=== PATIENT | female | born 1935 | race Caucasian/White ===

== ENCOUNTER 2017-11-06 14:19 | Inpatient (IN) | payer OTHER, BC ==
[~2017-11-06] VITALS: Ht 167.6 cm; Wt 80.7 kg
--- NOTE | ~2017-11-06 | EKG ---
[place] [address] [facility] [employer] [address] ELECTROCARDIOGRAM REPORT Name: HAYDEN ORTIZ Room #: 206-P ADM IN M.R.#: [id number] Admission: 11/06/17 Attend Phys: Nathan Zurita MD Discharge: Date of : 31 Report #: [id number] THIS REPORT FOR: //name// [facility] ED Test Date: 2017-11-06 Test Time: 14:27:42 Pat Name: HAYDEN DELGADO Department: Room: Gender: F Time Checker: avril : 1935 Requested By: April Inman Order Number: [id number] MD: Pako Souza Measurements Intervals [place]lett Rate: 82 P: 15 NM: 194 QRS: -37 QRSD: 164 T: 145 QT: 415 QTc: 485 Interpretive Statements Sinus rhythm Ventricular premature complex Left bundle branch block No previous ECG available for comparison Electronically Signed On 11-07-2017 10:46:41 CDT by Pako Souza [email or web address] <ELECTRONICALLY SIGNED> By: Pako Souza MD 11/07/17 1046 1427 1427 Pako Souza MD /MAYNOR
--- NOTE | ~2017-11-06 | HC ---
[facility] [place] [address] CONSULTATION Name: HAYDEN ORTIZ Room #: 206-P ADM IN M.R.#: [id number] Admission: 11/06/17 Attend Phys: Nathan Zurita MD Discharge: Date of : 31 Report #: [id number] THIS REPORT FOR: //name// CC: Nathan Lopez REFERRING PHYSICIAN: Dr. Zurita. PRIMARY CARE PHYSICIAN: Dr. Albrecht. REASON FOR REFERRAL: Abnormal chest x-ray. HISTORY OF PRESENT ILLNESS: The patient is an 82-year-old white female who presents to our Emergency Room with left-sided chest pain. Chest x-ray shows left upper lobe density. A pulmonary consultation was requested. The patient was in her usual state of health until about 2 days prior to presentation, she noticed mild left-sided chest wall discomfort. It was said to be short duration. It is sharp. It did not radiate. With recurrent chest pains, she presented to the Emergency Room. Chest x-ray performed in the ER shows density in the left hilum. The left hemidiaphragm is mildly elevated with a possible small left-sided pleural effusion. The patient has smoked very briefly as a young adult. She has smoked less than a year. She was exposed to secondhand smoke from her for many years. She denies any history of chronic lung disease. Denies any recent night sweats, fever or chills, chest pain, productive cough. Denies any recent weight loss. She had a complete physical about 5 years ago. She is followed regularly by Dr. Flores, her photo print specialist, for her Crohn's disease. PAST MEDICAL HISTORY: Notable for Crohn's disease for many years, secondhand smoke exposure. PAST SURGICAL HISTORY: None. ALLERGIES: PENICILLIN, which causes RASH. HOME MEDICATIONS: Paxil, Humira, Prilosec, iron supplements. FAMILY HISTORY: Unremarkable. SOCIAL HISTORY: She has tobacco use as mentioned above. She denies any alcohol [facility] [address] [place] [address] CONSULTATION Name: HAYDEN ORTIZ Room #: [address] [place] [address] [place] [facility].#: [id number] Admission: 11/06/17 Attend Phys: Nathan Zurita MD Discharge: Date of : 31 Report #: [id number]. She lives independently by herself. REVIEW OF SYSTEMS: As mentioned above, otherwise 10-point system review negative. PHYSICAL EXAMINATION: GENERAL: She is awake, alert, in no apparent distress. VITAL SIGNS: Temperature is 97.8 degrees Fahrenheit, pulse is 67, respiratory rate is 18, blood pressure 130/64 mmHg, saturation 98%. HEENT: Normocephalic, atraumatic. NECK: Supple, without any lymphadenopathy or thyromegaly. CHEST: Breath sounds are good bilaterally without any rales or wheezes. CARDIOVASCULAR: Normal S1, S2. There are no murmurs or gallop. There is no JVD, no carotid bruit. Pulses are 2+/4+ bilaterally. ABDOMEN: Soft, nontender, no organomegaly or masses felt. GENITOURINARY: Deferred. RECTAL: Deferred. EXTREMITIES: No edema, cyanosis or clubbing. LABORATORY DATA: Chest x-ray as mentioned above. Electrolytes are normal except for creatinine 1.5. Liver enzymes are grossly unremarkable. WBC 8900, hemoglobin 11.0, platelets are mildly elevated. No evidence of bandemia. IMPRESSION: 1. Left-sided chest pain in this 82-year-old white female. Chest x-ray shows density involving the left hilar area. There is some evidence of partial left diaphragmatic weakness along with small pleural effusion. Lung mass is suspected. Bronchogenic carcinoma is to consider. Pneumonia is felt to be less likely, though cannot absolutely rule out. 2. Significant secondhand smoke exposure. 3. Crohn's disease. 4. Renal insufficiency, by history appears to be acute kidney injury, etiology is unclear. RECOMMENDATIONS: We will proceed with noncontrast CT chest given renal insufficiency. Further recommendation pending review of this chest CT. Agree with broad-spectrum antibiotics. Treating for presumed community-acquired pneumonia. Pain control for chest pain. Findings were discussed with the patient and her sons. All questions were answered. [address] [address] CONSULTATION Name: HAYDEN ORTIZ Room #: 206-P ADM IN M.R.#: [id number] Admission: 11/06/17 Attend Phys: Nathan Zurita MD Discharge: Date of : 31 Report #: [id number] Thank you for this consultation. <ELECTRONICALLY SIGNED> By: Billy Lopez MD 11/07/17 1457 1315 1402 Billy Lopez MD /nt
[2017-11-06 14:29] VITALS: BP 107/66
[2017-11-06] MEDS ORDERED: PAXIL10 MG PO (15:14)
[2017-11-06] MEDS ORDERED: HUMIRA10 MG/0.1 SUBQ (15:14)
[2017-11-06] MEDS ORDERED: IRON325 PO (15:15)
[2017-11-06] MEDS ORDERED: PRILOSEC 10MG C10 MG PO (15:15)
[2017-11-06 15:18] LABS: ABSOLUTE NEUTROPHILS 5.8 thou/uL (1.4-8.2); BASOPHILS 0.6 % (0.0-2.0); EOSINOPHILS 1.3 % (0.0-3.0); HEMATOCRIT 32.1 % (37.0-47.0); HEMOGLOBIN 10.7 gm/dL (12.0-15.0); LYMPHOCYTES 25.2 % (24.0-44.0); MCH 30.1 pg (26.0-34.0); MCHC 33.3 g/dL (28.0-37.0); MCV 90.4 fL (80.0-100.0); MONOCYTES 6.9 % (1.0-8.0); PLATELET COUNT 382 thou/uL (150-400); RBC 3.55 mil/uL (4.20-5.00); RDW 14.2 % (10.5-14.5); WBC 8.8 thou/uL (4.0-11.0)
[2017-11-06 15:30] LABS: ANION GAP 7 mmol/L (7-16); BUN 19 mg/dL (7-18); CALCIUM 8.8 mg/dL (8.5-10.1); CHLORIDE 103 mmol/L (98-107); CO2 24 mmol/L (21-32); CREATININE 1.3 mg/dL (0.6-1.0); GLUCOSE 130 mg/dL (74-106); SODIUM 134 mmol/L (136-145)
[2017-11-06 15:39] LABS: ALBUMIN 2.6 g/dL (3.4-5.0); LIPASE 72 U/L (73-393); SGOT 14 U/L (15-37); SGPT 16 U/L (30-65); TOTAL BILIRUBIN 0.2 mg/dL (<0.1-1.0); TOTAL PROTEIN 7.5 g/dL (6.4-8.2); TROPONIN-I <0.06 ng/mL (<0.06)
[2017-11-06 17:01] VITALS: BP 108/59
[2017-11-06 17:23] VITALS: BP 108/59
[2017-11-06 17:42] VITALS: BP 108/74
[2017-11-06 20:45] VITALS: BP 119/56
[2017-11-07 00:22] VITALS: BP 123/52
[2017-11-07 04:31] LABS: HEMATOCRIT 34.1 % (37.0-47.0); MCH 29.7 pg (26.0-34.0); MCHC 32.3 g/dL (28.0-37.0); MCV 91.8 fL (80.0-100.0); RBC 3.71 mil/uL (4.20-5.00); RDW 14.1 % (10.5-14.5); WBC 7.5 thou/uL (4.0-11.0)
[2017-11-07 04:32] VITALS: BP 129/63
[2017-11-07 04:40] LABS: CALCIUM 8.9 mg/dL (8.5-10.1); CREATININE 1.5 mg/dL (0.6-1.0)
[2017-11-07 08:03] VITALS: BP 145/63
[2017-11-07 11:56] VITALS: BP 131/64
[2017-11-07 16:02] LABS: BE(vivo) -1.4 mmol/L (-2 to +3); HCO3 22.2 mmol/L (22.0-26.0); PCO2 33.7 mmHg (35.0-45.0); PO2 77.2 mmHg (80.0-100.0); pH 7.437 (7.360-7.450); sO2 95.9 % (92.0-98.0)
[2017-11-07 17:27] VITALS: BP 162/71
[2017-11-07 20:40] VITALS: BP 131/75
[2017-11-08 04:50] VITALS: BP 103/51; BP 140/81
[2017-11-08 06:24] LABS: CALCIUM 8.4 mg/dL (8.5-10.1); CREATININE 1.3 mg/dL (0.6-1.0); POTASSIUM 4.4 mmol/L (3.5-5.1)
[2017-11-08 07:00] VITALS: BP 156/64
[2017-11-08 11:46] VITALS: BP 122/67
[2017-11-08 15:16] VITALS: BP 125/60
[2017-11-08 19:50] VITALS: BP 138/66
[2017-11-09 04:48] VITALS: BP 135/63
[2017-11-09 07:14] VITALS: BP 143/75
[2017-11-09 11:55] VITALS: BP 135/72
[2017-11-09 15:09] LABS: APTT 33.3 Seconds (24.5-32.8); PROTIME 10.7 Seconds (9.3-11.4)
[2017-11-09 15:43] VITALS: BP 167/80
[2017-11-09] MEDS ORDERED: ENOXAPARIN40 MG/0.1 SUBQ (16:29)
[2017-11-09] MEDS ORDERED: ONDANSETRON HCL4 M1 IV PUSH (16:29)
[2017-11-09] MEDS ORDERED: LIDOPATCH1 EACH TRANSDERM (16:29)
[2017-11-09] MEDS ORDERED: LOPERAMIDE 2 MG2 M1 PO (16:29)
[2017-11-09] MEDS ORDERED: MUCINEX600 MG PO (16:29)
[2017-11-09] MEDS ORDERED: AZITHROMYCIN500 M3 IV (16:29)
[2017-11-09] MEDS ORDERED: ROCEPHIN 11 GM/1001 IV (16:29)
== END 2017-11-09 18:11 | disposition short-term general hospital (02) | DRG 194 ==
LOC: ER 14:19 → EROBS 16:06 → 2N 16:06
PROVIDERS: Hospitalist; Internal Medicine Pulmonary Disease; Nurse Practitioner Family
DX: J18.9 Pneumonia, unspecified organism (principal); N17.9 Acute kidney failure, unspecified; K50.90 Crohn's disease, unspecified, without complications; J90 Pleural effusion, not elsewhere classified; F41.9 Anxiety disorder, unspecified; K21.9 Gastro-esophageal reflux disease without esophagitis; Z77.22 Contact with and (suspected) exposure to environmental tobacco smoke (acute) (chronic); F32.9 Major depressive disorder, single episode, unspecified; G47.00 Insomnia, unspecified; Z88.0 Allergy status to penicillin; Z79.899 Other long term (current) drug therapy
CPT/HCPCS: 10081